=== PATIENT | male | born 1990 | race Caucasian/White ===

== ENCOUNTER 2022-01-22 19:41 | Inpatient (IN) | payer OTHER ==
[~2022-01-22] VITALS: Ht 172.7 cm; Wt 113.9 kg
--- NOTE | 2022-01-22 19:20 | NUR ---
Patient arrived in the unit via gurney from [facility]. Awake, alert and oriented x 4. In no apparent distress. Able to assist in transfer activity from gurney to bed. Denies any pain/discomforts at this time. Routine admission care done. Plan of care initiated.
[2022-01-22] MEDS ORDERED: ATOR10TA PO (20:33)
[2022-01-22] MEDS ORDERED: MAGN30OR PO (20:33)
[2022-01-22] MEDS ORDERED: FLUO20CA42 PO (20:33)
[2022-01-22] MEDS ORDERED: OXYC10TA49 PO (20:33)
[2022-01-22] MEDS ORDERED: METH-806 PO (20:33)
[2022-01-22] MEDS ORDERED: BISA10SU61 RC (20:33)
[2022-01-22] MEDS ORDERED: HYDR-4075 IVP (20:33)
[2022-01-22] MEDS ORDERED: HYDR4TAB57 PO (20:33)
[2022-01-22] MEDS ORDERED: ONDA4AMP IVP (20:33)
[2022-01-22] MEDS ORDERED: OXYC5TAB3 PO (20:33)
[2022-01-22] MEDS ORDERED: ACET-73 PO (20:33)
[2022-01-22] MEDS ORDERED: PROC10TA13 INJ (20:33)
[2022-01-22] MEDS ORDERED: HEPA500034 SUBCUT (20:33)
[2022-01-22] MEDS ORDERED: ALBU2.5V13 IH (20:33)
[2022-01-22] MEDS ORDERED: DOCU100C36 PO (20:33)
[2022-01-22 20:54] VITALS: BP 124/84
[2022-01-22] MEDS ORDERED: ACET-2154 PO (21:51)
[2022-01-22] MEDS: REMEDY ESSENTIAL ZINC PASTE 113 GM TOP SCH (22:01)
[2022-01-22] MEDS ORDERED: ACETAMINOPHEN 325 MG TABLET PO PRN (22:45)
[2022-01-22] MEDS ORDERED: OXYCODONE HCL 5 MG TABLET PO PRN (23:00)
[2022-01-23 04:30] VITALS: BP 112/71
[2022-01-23 07:46] VITALS: BP 102/64
[2022-01-23] MEDS: DOCUSATE SODIUM 100 MG CAPSULE PO SCH ×2 (08:52→16:47)
[2022-01-23] MEDS: FLUOXETINE HCL 20 MG CAPSULE PO SCH (08:52)
[2022-01-23] MEDS: REMEDY ESSENTIAL ZINC PASTE 113 GM TOP SCH ×2 (08:53→20:42)
--- NOTE | 2022-01-23 12:47 | NUR ---
INTERDISCIPLINARY TEAM CONFERENCE
[2022-01-23] MEDS: METHOCARBAMOL 500 MG TABLET PO SCH ×3 (13:37→20:41)
[2022-01-23 16:05] VITALS: BP 110/69
--- NOTE | 2022-01-23 18:36 | NUR ---
Remain Awake, alert and oriented x 4. In no apparent distress. Able to assist in transfer activity from bed to wheelchair up with PT . Medicated for pain/discomforts at neck site at this time. Routine care done.
--- NOTE | 2022-01-23 20:00 | NUR ---
RECEIVED PATIENT AWAKE, SITTING IN W/C WITH PARENTS AT BEDSIDE. PATIENT IS A/O X3. C/O DISCOMFORT, BUT TOLERABLE. PATIENT WAS PREVIOUSLY MEDICATED PRIOR TO SHIFT CHANGE. CALL LIGHT IN REACH. ALL NEEDS ATTENDED. WILL CONTINUE TO MONITOR AND ASSESS.
[2022-01-23 20:24] VITALS: BP 157/95
[2022-01-23] MEDS: ATORVASTATIN 10 MG TABLET PO SCH (20:41)
--- NOTE | 2022-01-23 23:10 | NUR ---
PATIENT AWAKE IN BED, C/O SEVERE PAIN IN THE BACK OF THE NECK. PATIENTS OXYIR 10MG IS NOT DUE UNTIL 0030. CALLED OUT TO DR. MORA FOR FURTHER ORDERS. ALL NEEDS ATTENDED.
[2022-01-23] MEDS ORDERED: OXYCODONE HCL 5 MG TABLET PO PRN (23:30)
--- NOTE | 2022-01-23 23:32 | NUR ---
SPOKE WITH DYLAN JUSTIN NP. RECEIVED NEW ORDERS.
[2022-01-24 00:08] VITALS: BP 138/86
[2022-01-24 04:00] VITALS: BP 115/61
--- NOTE | 2022-01-24 06:00 | NUR ---
PATIENT ASLEEP IN BED. EASILY AROUSABLE, BUT VERY SLEEPY. REFUSING FOR PICTURE TO BE TAKEN AT THIS TIME. WILL ENDORSE TO AM SHIFT. ALL NEEDS ATTENDED. Addendum: 01/24/22 at 0624 by BATSHEVA MCKENNA LVN Amended: Links added.
[2022-01-24 08:00] VITALS: BP 108/66
[2022-01-24] MEDS: METHOCARBAMOL 500 MG TABLET PO SCH ×4 (08:25→20:22)
[2022-01-24] MEDS: MORPHINE SULFATE SR 15 MG TABLET.SA PO SCH ×2 (08:25→20:22)
[2022-01-24] MEDS: REMEDY ESSENTIAL ZINC PASTE 113 GM TOP SCH ×2 (08:26→20:30)
[2022-01-24] MEDS: DOCUSATE SODIUM 100 MG CAPSULE PO SCH ×2 (08:26→16:12)
[2022-01-24] MEDS: FLUOXETINE HCL 20 MG CAPSULE PO SCH (08:26)
[2022-01-24] MEDS ORDERED: MORPHINE SULFATE SR 15 MG TABLET.SA PO SCH (09:00)
[2022-01-24 16:00] VITALS: BP 112/66
[2022-01-24 20:18] VITALS: BP 141/74
[2022-01-24] MEDS: ATORVASTATIN 10 MG TABLET PO SCH (20:22)
[2022-01-25 04:18] VITALS: BP 116/73
--- NOTE | 2022-01-25 06:19 | NUR ---
Pt slept well throughout the night, easily arousable for care. Routine pain medication given, noted effective. All needs attended. Call light placed within reach. Will endorse to next shift.
[2022-01-25 08:00] VITALS: BP 132/57
[2022-01-25] MEDS: DOCUSATE SODIUM 100 MG CAPSULE PO SCH ×2 (10:04→17:02)
[2022-01-25] MEDS: FLUOXETINE HCL 20 MG CAPSULE PO SCH (10:04)
[2022-01-25] MEDS: METHOCARBAMOL 500 MG TABLET PO SCH ×4 (10:04→20:39)
[2022-01-25] MEDS: REMEDY ESSENTIAL ZINC PASTE 113 GM TOP SCH ×2 (10:05→20:41)
[2022-01-25] MEDS: MORPHINE SULFATE SR 15 MG TABLET.SA PO SCH ×2 (10:43→20:40)
--- NOTE | 2022-01-25 14:35 | NUR ---
INDIVIDUALIZED PLAN OF CARE
[2022-01-25 16:00] VITALS: BP 119/70
[2022-01-25 20:39] VITALS: BP 139/79
[2022-01-25] MEDS: ATORVASTATIN 10 MG TABLET PO SCH (20:39)
[2022-01-25] MEDS: MUPIROCIN 2% OINT 22 GM TUBE NS SCH (20:41)
[2022-01-26 04:38] VITALS: BP 101/60
[2022-01-26 06:08] LABS: HEMATOCRIT 36.5 % (36.7-47.1); MEAN CORPUSCULAR HEMOGLOBIN 29.9 uug (23.8-33.4); MEAN CORPUSCULAR VOLUME 86.7 fL (73.0-96.2); PLATELET COUNT (AUTO) 251 K/uL (152-348)
[2022-01-26 06:25] LABS: CREATININE 0.8 mg/dL (0.6-1.3); MAGNESIUM 2.2 mg/dL (1.8-2.4); POTASSIUM 3.9 mmol/L (3.5-5.1)
--- NOTE | 2022-01-26 06:33 | NUR ---
Pt slept well throughout the night, easily arousable for care. Routine pain medication given, noted effective. No significant changes noted. All needs attended. Call light placed within reach. Will endorse to next shift.
[2022-01-26 07:38] VITALS: BP 113/54
[2022-01-26] MEDS: METHOCARBAMOL 500 MG TABLET PO SCH ×4 (08:01→20:22)
[2022-01-26] MEDS: DOCUSATE SODIUM 100 MG CAPSULE PO SCH ×2 (08:01→16:20)
[2022-01-26] MEDS: FLUOXETINE HCL 20 MG CAPSULE PO SCH (08:01)
[2022-01-26] MEDS: MORPHINE SULFATE SR 15 MG TABLET.SA PO SCH ×2 (08:01→20:22)
[2022-01-26] MEDS: REMEDY ESSENTIAL ZINC PASTE 113 GM TOP SCH ×2 (08:02→20:24)
[2022-01-26] MEDS: MUPIROCIN 2% OINT 22 GM TUBE NS SCH ×2 (08:02→20:24)
[2022-01-26 15:11] VITALS: BP 115/70
[2022-01-26] MEDS: ATORVASTATIN 10 MG TABLET PO SCH (20:22)
[2022-01-26 20:26] VITALS: BP 145/95
[2022-01-27 04:28] VITALS: BP 98/53
[2022-01-27 07:33] VITALS: BP 114/66
[2022-01-27] MEDS: MORPHINE SULFATE SR 15 MG TABLET.SA PO SCH ×2 (08:02→20:54)
[2022-01-27] MEDS: FLUOXETINE HCL 20 MG CAPSULE PO SCH (08:02)
[2022-01-27] MEDS: DOCUSATE SODIUM 100 MG CAPSULE PO SCH ×2 (08:02→16:14)
[2022-01-27] MEDS: METHOCARBAMOL 500 MG TABLET PO SCH ×4 (08:02→20:55)
[2022-01-27] MEDS: MUPIROCIN 2% OINT 22 GM TUBE NS SCH ×2 (08:03→20:58)
[2022-01-27] MEDS: REMEDY ESSENTIAL ZINC PASTE 113 GM TOP SCH ×2 (09:04→21:13)
[2022-01-27 16:00] VITALS: BP 121/68
[2022-01-27 20:35] VITALS: BP 133/60
[2022-01-27] MEDS: ATORVASTATIN 10 MG TABLET PO SCH (20:54)
[2022-01-28 04:45] VITALS: BP 99/53
[2022-01-28] MEDS: PANTOPRAZOLE SODIUM 40 MG TABLET.DR PO SCH (06:04)
--- NOTE | 2022-01-28 06:27 | NUR ---
Patient alert and able to make needs known. Ra. No significant changes noted.Compliant with medications. All needs anticipated and met accordingly .Call light placed within reach. Will endorse to oncoming shift.
[2022-01-28 07:36] VITALS: BP 118/75
[2022-01-28] MEDS: DOCUSATE SODIUM 100 MG CAPSULE PO SCH ×2 (08:07→16:00)
[2022-01-28] MEDS: MORPHINE SULFATE SR 15 MG TABLET.SA PO SCH ×2 (08:07→20:45)
[2022-01-28] MEDS: FLUOXETINE HCL 20 MG CAPSULE PO SCH (08:07)
[2022-01-28] MEDS: METHOCARBAMOL 500 MG TABLET PO SCH ×4 (08:07→20:44)
[2022-01-28] MEDS: REMEDY ESSENTIAL ZINC PASTE 113 GM TOP SCH ×2 (08:07→20:45)
[2022-01-28] MEDS: MUPIROCIN 2% OINT 22 GM TUBE NS SCH ×2 (08:08→20:45)
[2022-01-28 16:00] VITALS: BP 126/80
[2022-01-28 20:00] VITALS: BP 126/79
[2022-01-28] MEDS: ATORVASTATIN 10 MG TABLET PO SCH (20:44)
[2022-01-29 04:00] VITALS: BP 118/70
[2022-01-29] MEDS: PANTOPRAZOLE SODIUM 40 MG TABLET.DR PO SCH (05:32)
[2022-01-29 07:30] VITALS: BP 111/59
[2022-01-29] MEDS: FLUOXETINE HCL 20 MG CAPSULE PO SCH (08:09)
[2022-01-29] MEDS: REMEDY ESSENTIAL ZINC PASTE 113 GM TOP SCH ×2 (08:09→20:42)
[2022-01-29] MEDS: METHOCARBAMOL 500 MG TABLET PO SCH ×4 (08:09→20:41)
[2022-01-29] MEDS: DOCUSATE SODIUM 100 MG CAPSULE PO SCH ×2 (08:09→16:09)
[2022-01-29] MEDS: MORPHINE SULFATE SR 15 MG TABLET.SA PO SCH ×2 (08:09→20:41)
[2022-01-29] MEDS: MUPIROCIN 2% OINT 22 GM TUBE NS SCH ×2 (08:28→20:42)
[2022-01-29 16:00] VITALS: BP 126/79
[2022-01-29 20:00] VITALS: BP 123/69
[2022-01-29] MEDS: ATORVASTATIN 10 MG TABLET PO SCH (20:41)
[2022-01-30 04:00] VITALS: BP 124/80
[2022-01-30] MEDS: PANTOPRAZOLE SODIUM 40 MG TABLET.DR PO SCH (05:35)
[2022-01-30 06:52] LABS: HEMATOCRIT 38.2 % (36.7-47.1); MEAN CORPUSCULAR HEMOGLOBIN 29.9 uug (23.8-33.4); MEAN CORPUSCULAR VOLUME 88.5 fL (73.0-96.2); PLATELET COUNT (AUTO) 267 K/uL (152-348)
[2022-01-30 07:19] LABS: BILIRUBIN,TOTAL 0.3 mg/dL (0.2-1.0); CREATININE 0.8 mg/dL (0.6-1.3); POTASSIUM 4.1 mmol/L (3.5-5.1)
--- NOTE | 2022-01-30 08:47 | NUR ---
INTERDISCIPLINARY TEAM CONFERENCE
[2022-01-30] MEDS: FLUOXETINE HCL 20 MG CAPSULE PO SCH (08:51)
[2022-01-30] MEDS: METHOCARBAMOL 500 MG TABLET PO SCH ×4 (08:51→20:43)
[2022-01-30] MEDS: REMEDY ESSENTIAL ZINC PASTE 113 GM TOP SCH ×2 (08:52→20:46)
[2022-01-30] MEDS: DOCUSATE SODIUM 100 MG CAPSULE PO SCH ×2 (08:52→16:48)
[2022-01-30] MEDS: MORPHINE SULFATE SR 15 MG TABLET.SA PO SCH ×2 (08:52→20:43)
[2022-01-30] MEDS: MUPIROCIN 2% OINT 22 GM TUBE NS SCH ×2 (08:55→20:45)
[2022-01-30 11:50] VITALS: BP 107/68
--- NOTE | 2022-01-30 14:45 | NUR ---
pt requesting to stay in chair, per RN she prefers pt to go back to bed for safety. PT assisted pt back to bed, RN present to observe assist levels. Bed alarm on and pt agreeable to call for assist with call light.
[2022-01-30 16:00] VITALS: BP 100/53
--- NOTE | 2022-01-30 19:00 | NUR ---
Received patient on bed, awake, alert and oriented x3-4, not in labored breathing. Safety precautions provided. Call light placed within reach.
[2022-01-30 20:00] VITALS: BP 125/77
[2022-01-30] MEDS: ATORVASTATIN 10 MG TABLET PO SCH (20:43)
[2022-01-31 04:00] VITALS: BP 137/73
--- NOTE | 2022-01-31 05:44 | NUR ---
Patient slept well within the shift, no complaint of pain. No unusualities noted. Patient in fair condition.
[2022-01-31] MEDS: PANTOPRAZOLE SODIUM 40 MG TABLET.DR PO SCH (06:11)
[2022-01-31 08:07] VITALS: BP 123/67
[2022-01-31] MEDS: METHOCARBAMOL 500 MG TABLET PO SCH ×4 (08:12→20:36)
[2022-01-31] MEDS: DOCUSATE SODIUM 100 MG CAPSULE PO SCH ×2 (08:12→16:55)
[2022-01-31] MEDS: FLUOXETINE HCL 20 MG CAPSULE PO SCH (08:12)
[2022-01-31] MEDS: MORPHINE SULFATE SR 15 MG TABLET.SA PO SCH ×2 (08:13→20:35)
[2022-01-31] MEDS: MUPIROCIN 2% OINT 22 GM TUBE NS SCH ×2 (08:15→20:50)
[2022-01-31] MEDS: REMEDY ESSENTIAL ZINC PASTE 113 GM TOP SCH ×2 (08:18→20:50)
--- NOTE | 2022-01-31 08:37 | NUR ---
Patient awake, alert, not in any form of distress on room air. He is compliant with medications. Assisted with his needs. He is sitting up on the wheelchair with PT on the way to rehab gym.
[2022-01-31 16:06] VITALS: BP 136/69
[2022-01-31 20:00] VITALS: BP 120/75
--- NOTE | 2022-01-31 20:23 | NUR ---
Patient in bed. AALOx3-4.No s/s of distress noted.On RA.Sutures removed on posterior neck as ordered.Tolerated well. No active bleeding. Due meds given . Call light with in reach. Will continue to monitor.
[2022-01-31] MEDS: ATORVASTATIN 10 MG TABLET PO SCH (20:35)
[2022-02-01 04:00] VITALS: BP 96/54
[2022-02-01] MEDS: PANTOPRAZOLE SODIUM 40 MG TABLET.DR PO SCH (06:10)
[2022-02-01 07:56] VITALS: BP 111/71
[2022-02-01] MEDS: MUPIROCIN 2% OINT 22 GM TUBE NS SCH (08:32)
[2022-02-01] MEDS: DOCUSATE SODIUM 100 MG CAPSULE PO SCH ×2 (08:32→17:32)
[2022-02-01] MEDS: FLUOXETINE HCL 20 MG CAPSULE PO SCH (08:33)
[2022-02-01] MEDS: MORPHINE SULFATE SR 15 MG TABLET.SA PO SCH ×3 (08:33→20:17)
[2022-02-01] MEDS: METHOCARBAMOL 500 MG TABLET PO SCH ×4 (08:33→20:17)
[2022-02-01] MEDS: REMEDY ESSENTIAL ZINC PASTE 113 GM TOP SCH ×2 (08:34→20:19)
[2022-02-01 16:02] VITALS: BP 116/70
[2022-02-01] MEDS: ATORVASTATIN 10 MG TABLET PO SCH (20:17)
[2022-02-01 20:26] VITALS: BP 124/77
--- NOTE | 2022-02-02 02:30 | NUR ---
AAOx4 OOB in wheelchair upon initial rounds. Needs attended. VSS. Tolerated po meds well. Denies any pain at this time. No acute distress noted. On scheduled MS contin 15 mg given as ordered. Continent of bowel and bladder. Sutures out back of the neck. Will monitor patient.
[2022-02-02 04:43] VITALS: BP 106/77
[2022-02-02] MEDS: PANTOPRAZOLE SODIUM 40 MG TABLET.DR PO SCH (06:04)
[2022-02-02 08:00] VITALS: BP 128/58
[2022-02-02] MEDS: FLUOXETINE HCL 20 MG CAPSULE PO SCH (09:35)
[2022-02-02] MEDS: MORPHINE SULFATE SR 15 MG TABLET.SA PO SCH ×2 (09:35→20:21)
[2022-02-02] MEDS: METHOCARBAMOL 500 MG TABLET PO SCH ×4 (09:35→20:21)
[2022-02-02] MEDS: DOCUSATE SODIUM 100 MG CAPSULE PO SCH ×2 (09:35→16:44)
[2022-02-02] MEDS: REMEDY ESSENTIAL ZINC PASTE 113 GM TOP SCH ×2 (09:57→20:21)
--- NOTE | 2022-02-02 15:53 | NUR ---
Pt remain Awake, alert and oriented x 4 with periods of forgetfulness at times pleasant. In no apparent distress Meds given as ordered. Able to assist in transfer activity from bed to wheelchair up with PT ambulating with FWW . Medicated for pain Routine order Meds effective safety measures in place ADL care done.
[2022-02-02 16:00] VITALS: BP 125/80
--- NOTE | 2022-02-02 18:40 | NUR ---
Pt complain of having difficulty having BM notified DR Mosqueda with new order for Miralax 17 G po PRN QHS for constipation order carried out
[2022-02-02] MEDS: ATORVASTATIN 10 MG TABLET PO SCH (20:21)
[2022-02-02 20:29] VITALS: BP 124/81
--- NOTE | 2022-02-02 20:53 | NUR ---
AAOx4 with some periods of forgetfulness at times. OOB in wheelchair when received. Family in with patient. Assisted back to bed by family with minimal assist. Noticed that left leg was bleeding a little bit, father questioned and ask what happened patient said he was shaving his legs, cleansed with saline and apply dry dressing. Will monitor patient. Tolerated po meds well. No acute distress noted. VSS. Kept comfortable. Voiding well in the urinal.
[2022-02-03 04:39] VITALS: BP 108/55
[2022-02-03] MEDS: PANTOPRAZOLE SODIUM 40 MG TABLET.DR PO SCH (06:05)
--- NOTE | 2022-02-03 07:30 | NUR ---
Received awake and verbally responsive, in pleasant mood. Denies pain or sob. Stated he was on the phone greeting family mother's day. Watching tv, appears comfortable. Needs attended. Safety measures in place.
[2022-02-03 08:07] VITALS: BP 107/77
[2022-02-03] MEDS: METHOCARBAMOL 500 MG TABLET PO SCH ×4 (08:41→20:37)
[2022-02-03] MEDS: DOCUSATE SODIUM 100 MG CAPSULE PO SCH ×2 (08:41→17:14)
[2022-02-03] MEDS: FLUOXETINE HCL 20 MG CAPSULE PO SCH (08:41)
[2022-02-03] MEDS: MORPHINE SULFATE SR 15 MG TABLET.SA PO SCH ×2 (08:41→20:37)
[2022-02-03] MEDS: REMEDY ESSENTIAL ZINC PASTE 113 GM TOP SCH ×2 (08:42→20:38)
[2022-02-03 16:28] VITALS: BP 120/74
--- NOTE | 2022-02-03 18:25 | NUR ---
pt hyperverbal. family came to visit no issues presented. pt had no distress during rehab sessions.
--- NOTE | 2022-02-03 19:30 | NUR ---
Received pt awake, alert and orientedx4. Pt in no acute distress. Father at bedside. Pt hyperverbal. Safety and comfort provided. Will continue to monitor.
[2022-02-03 20:29] VITALS: BP 128/73
[2022-02-03] MEDS: ATORVASTATIN 10 MG TABLET PO SCH (20:37)
--- NOTE | 2022-02-03 22:00 | NUR ---
Pt frustrated he wants to go to [facility] with his dad. Told him that his discharge based on the aru discharge date was 02/05/22.
[2022-02-04 04:34] VITALS: BP 104/64
--- NOTE | 2022-02-04 05:38 | NUR ---
Pt in no acute distress. Prescribed medication given and pt tolerated it well. Safety and comfort provided. All needs are met. Will endorse to incoming nurse that pt wants to see ricardo atkinson with his dad and wants to go home.
[2022-02-04] MEDS: PANTOPRAZOLE SODIUM 40 MG TABLET.DR PO SCH (06:02)
[2022-02-04 07:59] VITALS: BP 122/71
[2022-02-04] MEDS: DOCUSATE SODIUM 100 MG CAPSULE PO SCH ×2 (09:05→16:09)
[2022-02-04] MEDS: FLUOXETINE HCL 20 MG CAPSULE PO SCH (09:06)
[2022-02-04] MEDS: MORPHINE SULFATE SR 15 MG TABLET.SA PO SCH ×2 (09:06→21:01)
[2022-02-04] MEDS: REMEDY ESSENTIAL ZINC PASTE 113 GM TOP SCH ×2 (09:09→21:01)
[2022-02-04] MEDS: METHOCARBAMOL 500 MG TABLET PO SCH ×4 (09:09→21:00)
[2022-02-04] MEDS: MIRALAX 17 GM POWD.PACK PO PRN (13:39)
[2022-02-04 16:12] VITALS: BP 129/72
--- NOTE | 2022-02-04 18:48 | NUR ---
Patient remained stable during the shift. No acute distress identified. Denies pain/discomfort. Safety measures maintained. will endorse to the next shift for continuity of care.
[2022-02-04 20:00] VITALS: BP 146/80
[2022-02-04] MEDS: ATORVASTATIN 10 MG TABLET PO SCH (21:00)
[2022-02-05 04:37] VITALS: BP 118/64
[2022-02-05] MEDS: PANTOPRAZOLE SODIUM 40 MG TABLET.DR PO SCH (06:15)
[2022-02-05 07:52] VITALS: BP 112/73
[2022-02-05] MEDS: FLUOXETINE HCL 20 MG CAPSULE PO SCH (08:28)
[2022-02-05] MEDS: MORPHINE SULFATE SR 15 MG TABLET.SA PO SCH ×2 (08:28→20:38)
[2022-02-05] MEDS: METHOCARBAMOL 500 MG TABLET PO SCH ×4 (08:28→20:38)
[2022-02-05] MEDS: DOCUSATE SODIUM 100 MG CAPSULE PO SCH ×2 (08:28→16:14)
[2022-02-05] MEDS: REMEDY ESSENTIAL ZINC PASTE 113 GM TOP SCH ×2 (08:29→20:38)
[2022-02-05] MEDS: MIRALAX 17 GM POWD.PACK PO PRN (13:59)
[2022-02-05] MEDS ORDERED: BISACODYL 10 MG SUPP.RECT RC PRN (15:15)
[2022-02-05 16:37] VITALS: BP 118/75
--- NOTE | 2022-02-05 17:57 | NUR ---
1 large BM noted. Mother made aware. Patient felt relieved. will continue to monitor and encourage fluid intake.
--- NOTE | 2022-02-05 18:39 | NUR ---
No acute distress identified during the shift. Safety measures maintained. kept call light within reach. all needs attended. will endorse to the next shift for continuity of care.
[2022-02-05 20:27] VITALS: BP 131/85
[2022-02-05] MEDS: ATORVASTATIN 10 MG TABLET PO SCH (20:38)
[2022-02-06 04:33] VITALS: BP 95/48
[2022-02-06] MEDS: PANTOPRAZOLE SODIUM 40 MG TABLET.DR PO SCH (06:09)
--- NOTE | 2022-02-06 06:17 | NUR ---
patient remained stable. no acute distress noted. no significant changes. safety measures maintained. will endorse to the next shift for continuity of care.
[2022-02-06 08:00] VITALS: BP 112/69
[2022-02-06] MEDS: FLUOXETINE HCL 20 MG CAPSULE PO SCH (08:34)
[2022-02-06] MEDS: DOCUSATE SODIUM 100 MG CAPSULE PO SCH ×2 (08:34→16:35)
[2022-02-06] MEDS: METHOCARBAMOL 500 MG TABLET PO SCH ×4 (08:34→20:51)
[2022-02-06] MEDS: REMEDY ESSENTIAL ZINC PASTE 113 GM TOP SCH ×2 (08:35→20:51)
[2022-02-06] MEDS: MORPHINE SULFATE SR 15 MG TABLET.SA PO SCH ×2 (08:38→20:51)
--- NOTE | 2022-02-06 13:57 | NUR ---
INTERDISCIPLINARY TEAM CONFERENCE
[2022-02-06 16:35] VITALS: BP 106/71
[2022-02-06 20:00] VITALS: BP 101/60
[2022-02-06] MEDS: ATORVASTATIN 10 MG TABLET PO SCH (20:51)
[2022-02-07 04:53] VITALS: BP 98/58
[2022-02-07] MEDS: PANTOPRAZOLE SODIUM 40 MG TABLET.DR PO SCH (06:09)
--- NOTE | 2022-02-07 06:24 | NUR ---
Patient remained stable during the shift, no distress identified. Safety measures maintained. will endorse to the next shift for continuity of care.
[2022-02-07 07:50] VITALS: BP 105/57
[2022-02-07] MEDS: MIRALAX 17 GM POWD.PACK PO PRN (08:01)
[2022-02-07] MEDS: REMEDY ESSENTIAL ZINC PASTE 113 GM TOP SCH ×2 (08:01→20:24)
[2022-02-07] MEDS: FLUOXETINE HCL 20 MG CAPSULE PO SCH (08:01)
[2022-02-07] MEDS: MORPHINE SULFATE SR 15 MG TABLET.SA PO SCH ×2 (08:01→20:23)
[2022-02-07] MEDS: DOCUSATE SODIUM 100 MG CAPSULE PO SCH ×2 (08:01→16:23)
[2022-02-07] MEDS: METHOCARBAMOL 500 MG TABLET PO SCH ×4 (08:01→20:23)
[2022-02-07 16:00] VITALS: BP 118/67
[2022-02-07 20:00] VITALS: BP 117/70
[2022-02-07] MEDS: ATORVASTATIN 10 MG TABLET PO SCH (20:23)
[2022-02-08 04:30] VITALS: BP 103/67
[2022-02-08] MEDS: PANTOPRAZOLE SODIUM 40 MG TABLET.DR PO SCH (06:04)
[2022-02-08 07:49] VITALS: BP 126/75
[2022-02-08] MEDS: FLUOXETINE HCL 20 MG CAPSULE PO SCH (08:03)
[2022-02-08] MEDS: DOCUSATE SODIUM 100 MG CAPSULE PO SCH ×2 (08:03→16:27)
[2022-02-08] MEDS: MORPHINE SULFATE SR 15 MG TABLET.SA PO SCH (08:04)
[2022-02-08] MEDS: METHOCARBAMOL 500 MG TABLET PO SCH ×3 (08:04→16:28)
[2022-02-08] MEDS: REMEDY ESSENTIAL ZINC PASTE 113 GM TOP SCH (08:04)
[2022-02-08] MEDS ORDERED: OXYC1TAB12 PO (14:13)
[2022-02-08 16:14] VITALS: BP 128/71
--- NOTE | 2022-02-08 16:42 | NUR ---
dc orders received noted and carried out dc instruction and education given to the pt and his family .pt left the facility via private car in stable condition
== END 2022-02-08 16:45 | disposition home health service (06) | DRG 862 ==
PROVIDERS: ADMIT Physical Medicine & Rehabilitation Pain Medicine; ATTEND Physical Medicine & Rehabilitation Pain Medicine
DX: Z47.89 Encounter for other orthopedic aftercare (principal); M47.12 Other spondylosis with myelopathy, cervical region; D68.59 Other primary thrombophilia; E66.9 Obesity, unspecified; E78.5 Hyperlipidemia, unspecified; R29.6 Repeated falls; Z91.81 History of falling; Z87.820 Personal history of traumatic brain injury; R27.0 Ataxia, unspecified; R42 Dizziness and giddiness; R53.1 Weakness; M47.22 Other spondylosis with radiculopathy, cervical region; M48.02 Spinal stenosis, cervical region; M21.372 Foot drop, left foot; Z68.38 Body mass index [BMI] 38.0-38.9, adult
CPT/HCPCS: 36415; 83735; 85025; 97161; 97535-GO-CO; A4663